=== PATIENT | female | born 1975 | race Caucasian/White ===

== ENCOUNTER → 2016-04-13 | Outpatient (CLI) | payer OTHER ==
[~2016-04-13] VITALS: Ht 170.2 cm; Wt 115.7 kg
[~2016-04-13] MED LIST: ATIVAN0.5 MG PO; BENADRYL ALLERG25 MG PO; BIOTIN5 M1 PO; CELEXA10 MG; CELEXA20 MG PO; COLACE100 MG PO; DEXILANT60 MG PO; FLEXERIL PO; HYDROCODONE-APA1 TA1 PO; IBUPROFEN 200200 M1 PO; LORTAB ELIXIR; NABUMETONE 750750 M1 PO; NEURONTIN 300300 M1 PO; NORCO 5-325 TA1 EACH PO; PAXIL40 MG PO; PERCOCET 7.5-31 EACH PO; PERCOCET PO; PREDNISONE 10 M10 MG PO; SENNA S TABLET1 EACH; THERA-M CAPLET1 EACH PO; TRAMADOL 50 MG50 MG PO; VOLTAREN GEL 1100 G2 TOP; ZOFRAN ODT4 MG; ZOFRAN ODT4 MG PO
--- NOTE | ~2016-04-13 | HPC ---
[facility] [place] [address] PAIN MANAGEMENT CONSULTATION Name: JESSICA ALEXANDRAULA Kayla Room #: REG [facility] [id number] Admission: 04/13/16 Attend Phys: Kanu Guerrero DO Discharge: Date of : 73 Report #: [id number] THIS REPORT FOR: //name// CC: Cirilo Guerrero HISTORY: The patient is a pleasant 41-year-old female, last seen in the pain clinic this past summer. She has had cervical radicular symptoms and has had 2 injections, March and April 2015, with 80% improvement of baseline pain. Pain had recurred 08/25 and I repeated an injection. On her 09/16 followup, she was actually doing reasonably well. Noted pain was fairly nominal. Noted, however, the injection only gave her about 50% relief. Concerned that perhaps symptoms were getting worse, I ordered an EMG. This was obtained 09/20/2015 and I reviewed it with the patient today. This was accomplished by Dr. Gonzalez and interestingly, shows essentially a normal study. No evidence of significant cervical radiculopathy. MRI from 10/13/2015 does however note C5-C6 to have focal protrusion a little left to midline at C5-C6 with canal narrowed to about 8 mm. The patient returns to the pain clinic today noting that cervical symptoms have recurred. Pain is right greater than left that is present on both sides, radiating into the first 3 fingers in both hands (thumb, index and long). PHYSICAL EXAMINATION: GENERAL: Shows 41-year-old female. Modestly elevated BMI at 39.9 kilograms per meter squared. VITAL SIGNS: Stable as noted in the EMR. MUSCULOSKELETAL: Cervical range of motion, flexion and extension exacerbates neck pain, with a nominally positive Lhermitte sign. Right arm has objective loss of strength to biceps, triceps, and hand grasp about 3-4/5; left is a little stronger at 4-5/5 to all muscle groups tested. The right biceps reflex is absent. It is 1/4 in the left brachioradialis and triceps reflexes are generally symmetric. ASSESSMENT: Symptomatic cervical radiculopathy by clinical exam and correlated with MRI. RECOMMENDATION: Repeat cervical epidural injection under fluoroscopy today. I have taken the liberty of renewing Percocet 5/325, 60 tablets with no refill, one tablet every 4-6 hours as needed for pain. The patient encouraged to use this on a non-daily basis. She is using ibuprofen p.r.n. NABUMETONE had caused a little gastritis. ASSESSMENT: Symptomatic cervical radiculopathy. RECOMMENDATIONS: Cervical epidural injection under fluoroscopy. [address] [address] PAIN MANAGEMENT CONSULTATION Name: DAGOBERTO ALEXANDRA Room #: REG ALLI Gan#: [id number] Admission: 04/13/16 Attend Phys: Kanu Guerrero DO Discharge: Date of : 73 Report #: [id number] PROCEDURE: Cervical epidural steroid injection under fluoroscopy. PROCEDURE NOTE: After written and informed consent was obtained including risk of dural puncture, spinal cord trauma, paralysis and increased pain, the patient was taken to the fluoroscopy suite and placed in the prone position, with appropriate abdominal bolstering, neck was flexed, palms under the thighs. Skin was prepped with ChloraPrep. Sterile draping was applied. Skin wheal with 1% Xylocaine was raised. A 22-gauge 3-1/2 inch epidural Tuohy needle was placed via a midline approach at the level of C7-T1 interspace, advanced under biplanar fluoroscopy using continuous loss of resistance. With appropriate loss of resistance at the expected depth on lateral view, the glass loss of resistance syringe was disconnected. A low volume extension tubing was connected to the needle and a 5 mL syringe. Negative aspiration for cerebrospinal fluid or blood was noted. A 1 mL of Omnipaque was injected which showed spread within the epidural space on biplanar fluoroscopy. This was followed with 80 mg of triamcinolone plus 1 mL of 1.5% preservative Xylocaine. Needle was withdrawn to the interspinous ligament, 0.5 mL of Xylocaine was used to flush the needle. The needle was then completely withdrawn. The area was cleansed. Band-Aid was applied. The patient was allowed to move off the procedure table and ambulated to the recovery room, monitored for an appropriate period of time, discharged in good and stable condition. <ELECTRONICALLY SIGNED> By: Kanu Guerrero DO 04/14/16 0904 [id number] Kanu Guerrero DO /nt
[2016-04-13 13:10] VITALS: BP 129/86
== END | disposition home or self-care (01) ==
LOC: PAIN 07:19
DX: M54.12 Radiculopathy, cervical region (principal)

== ENCOUNTER → 2016-07-12 | Outpatient (CLI) | payer OTHER | LOC: ULTRA 14:21 | DX: M79.605 Pain in left leg (principal); M79.89 Other specified soft tissue disorders ==

== ENCOUNTER → 2017-04-09 | Outpatient (CLI) | payer BC ==
[~2017-04-09] MED LIST changes: +LEXAPRO20 MG PO; +PAXIL10 MG PO; +TRAZODONE HCL50 MG PO
== END ==
LOC: RAD 09:17
DX: Z12.31 Encounter for screening mammogram for malignant neoplasm of breast (principal)

== ENCOUNTER → 2017-04-27 | Outpatient (CLI) | payer BC ==
[~2017-04-27] VITALS: Ht 170.2 cm; Wt 128.9 kg
--- NOTE | ~2017-04-27 | HPC ---
[facility] [place] [address] [place] [address] PAIN MANAGEMENT CONSULTATION Name: IBRAHIMADAGOBERTO ADRIANA Room #: REG ALLI Malik#: [id number] Admission: 04/27/17 Attend Phys: Kanu Guerrero DO Discharge: Date of : 73 Report #: [id number] THIS REPORT FOR: //name// CC: Cirilo Guerrero DATE OF SERVICE: 04/28/2017 The patient is a pleasant 42-year-old female, prior seen in the Pain Clinic back in January, given a cervical epidural injection at that time. The patient returns to Pain Clinic today noting that the injection afforded good relief, specifically the patient reports 85% relief for 2 months. She was able to do activities with less pain. She reports the pain has begun to recur without antecedent trauma and overuse. Pain is in the neck, right shoulder, and arm. PHYSICAL EXAMINATION: Shows subjective tingling in the arm. Cervical range of motion is limited with positive Lhermitte's, decreased right triceps and deltoid strength. DIAGNOSTIC STUDIES: We reviewed her MRI from 05/03/2016. There is multifocal spondylosis. Canals narrowed to about 9 mm at C6-C7. There is a left-sided HNP at C5-C6. Again, symptoms are more right-sided. ASSESSMENT: Symptomatic cervical radiculopathy by clinical exam and history. RECOMMENDATIONS: Cervical epidural injection under fluoroscopy today. I have taken the liberty of renewing Percocet 7.5/325, limit 50 tablets. If symptoms continue, patient will follow up in 1 month and refer to Neurosurgery. If she is doing well, will simply have her call up and cancel. ASSESSMENT: Symptomatic cervical radiculopathy. PROCEDURE: Cervical epidural injection under fluoroscopy. PROCEDURE NOTE: After written and informed consent was obtained including risk of dural puncture, spinal cord trauma, paralysis and increased pain, the patient was taken to the fluoroscopy suite and placed in the prone position, with appropriate abdominal bolstering, neck was flexed, palms under the thighs. Skin was prepped with ChloraPrep. Sterile draping was applied. Skin wheal with 1% Xylocaine was raised. A 22-gauge 3-1/2 inch epidural Tuohy needle was placed via a midline approach at the C7-T1 interspace, advanced under biplanar fluoroscopy using continuous loss of resistance. With appropriate loss of resistance at the expected depth on lateral view, the glass loss of resistance syringe was disconnected. A low volume extension tubing was connected to the needle and a 5 mL syringe. Negative aspiration for cerebrospinal fluid or blood was noted. A 1 mL of Omnipaque was injected which showed spread within the [facility] [address] [place] [address] PAIN MANAGEMENT CONSULTATION Name: DAGOBERTO ALEXANDRA Room #: REG ALLI Gan#: [id number] Admission: 04/27/17 Attend Phys: Kanu Guerrero DO Discharge: Date of : 73 Report #: [id number] epidural space on biplanar fluoroscopy. This was followed with 80 mg of triamcinolone plus 1 mL of 1.5% preservative Xylocaine. Needle was withdrawn to the interspinous ligament, 0.5 mL of Xylocaine was used to flush the needle. The needle was then completely withdrawn. The area was cleansed. Band-Aid was applied. The patient was allowed to move off the procedure table and ambulated to the recovery room, monitored for an appropriate period of time, discharged in good and stable condition. <ELECTRONICALLY SIGNED> By: Kanu Guerrero DO 04/30/17 0715 1222 05 Kanu Guerrero DO /nt
[2017-04-27 13:32] VITALS: BP 157/96
== END | disposition home or self-care (01) ==
LOC: PAIN 03-05 14:51
DX: M54.12 Radiculopathy, cervical region (principal); Z79.899 Other long term (current) drug therapy; M47.892 Other spondylosis, cervical region

== ENCOUNTER → 2017-05-18 | Outpatient (CLI) | payer BC ==
[~2017-05-18] VITALS: Ht 170.2 cm; Wt 129.7 kg
--- NOTE | ~2017-05-18 | HPC ---
[facility] [place] [address] [place] [address] PAIN MANAGEMENT CONSULTATION Name: JESSICA ALEXANDRAULA ADRIANA Room #: REG CHIPSylvie Gan#: [id number] Admission: 05/18/17 Attend Phys: Kanu Guerrero DO Discharge: Date of : 73 Report #: [id number] THIS REPORT FOR: //name// CC: Cirilo Guerrero DATE OF SERVICE: 05/18/2017 The patient is a very pleasant 42-year-old female being treated for symptomatic cervical radiculopathy. She has had good relief with epidural injections in the past. The last injection 04/27/2017 afforded only incremental relief. Symptoms have recurred. She has ongoing cervical radicular symptoms with pain primarily in the neck, right shoulder and arm. Does have some new radiation in the left arm. We reviewed her MRI from 05/03/2016 which did note mild multifocal spondylosis without high grade lateralizing stenosis, but ongoing cervical radicular symptoms. PHYSICAL EXAMINATION: Does show positive Lhermitte's with symptoms radiating to the right shoulder and arm. ASSESSMENT: Symptomatic cervical radiculopathy by clinical exam and history. RECOMMENDATION: 1. Cervical epidural injection under fluoroscopy today, this will be #3. 2. Renewed a short course of Percocet 7.5/325, limit 50 tablets, directions 1 tablet q.4-6h. 3. We will get a newer MRI of the cervical spine and refer the patient to Neurosurgery. Reason for the new MRI is that the last MRI is by definition greater than 1 year old and Neurosurgery will require a newer MRI. She does have ongoing cervical radicular symptoms. ASSESSMENT: Symptomatic cervical radiculopathy by clinical exam and history. PROCEDURE: Cervical epidural injection under fluoroscopy. PROCEDURE NOTE: After written and informed consent was obtained including risk of dural puncture, spinal cord trauma, paralysis and increased pain, the patient was taken to the fluoroscopy suite and placed in the prone position, with appropriate abdominal bolstering, neck was flexed, palms under the thighs. Skin was prepped with ChloraPrep. Sterile draping was applied. Skin wheal with 1% Xylocaine was raised. A 22-gauge 3-1/2 inch epidural Tuohy needle was placed via a midline approach at the C7-T1 interspace, advanced under biplanar fluoroscopy using continuous loss of resistance. With appropriate loss of resistance at the expected depth on lateral view, the glass loss of resistance [address] [address] PAIN MANAGEMENT CONSULTATION Name: DAGOBERTO ALEXANDRA ADRIANA Room #: REG Sylvie Gan#: [id number] Admission: 05/18/17 Attend Phys: Kanu Guerrero DO Discharge: Date of : 73 Report #: [id number] syringe was disconnected. A low volume extension tubing was connected to the needle and a 5 mL syringe. Negative aspiration for cerebrospinal fluid or blood was noted. A 1 mL of Omnipaque was injected which showed spread within the epidural space on biplanar fluoroscopy. This was followed with 80 mg of triamcinolone plus 1 mL of 1.5% preservative Xylocaine. Needle was withdrawn to the interspinous ligament, 0.5 mL of Xylocaine was used to flush the needle. The needle was then completely withdrawn. The area was cleansed. Band-Aid was applied. The patient was allowed to move off the procedure table and ambulated to the recovery room, monitored for an appropriate period of time, discharged in good and stable condition. <ELECTRONICALLY SIGNED> By: Kanu Guerrero DO 05/21/17 0747 1557 1758 Kanu Guerrero DO /nt
[2017-05-18 14:13] VITALS: BP 133/85
== END ==
LOC: PAIN 07:07
DX: M54.12 Radiculopathy, cervical region (principal)

== ENCOUNTER → 2018-05-03 | Outpatient (CLI) | payer BC | LOC: RAD 04-30 01:29 | DX: Z12.31 Encounter for screening mammogram for malignant neoplasm of breast (principal) ==

== ENCOUNTER → 2018-08-28 | Outpatient (CLI) | payer BC ==
[~2018-08-28] VITALS: Ht 170.2 cm; Wt 90.9 kg
[~2018-08-28] MED LIST changes: +BUSPIRONE HCL15 MG PO; +NORCO 7.5-3251 EACH PO
--- NOTE | ~2018-08-28 | HPC ---
[facility] [address] [place] [address] [place] [address] PAIN MANAGEMENT CONSULTATION Name: DAGOBERTO ALEXANDRA Room #: REG ALLI FrancoChago#: [id number] Admission: 08/28/18 ������������������ Attend Phys: Cirilo Guerrero DO Discharge: ������������������ Date of : 73 Report #: [id number] THIS REPORT FOR: //name// CC: Cirilo Spicer DATE OF SERVICE: 08/28/2018 REFERRING PHYSICIAN: Cirilo Isaac D.O. CHIEF COMPLAINT: Low back pain and left lower extremity pain with paresthesias. HISTORY OF PRESENT ILLNESS: As you know, the patient is a 43-year-old female who has returned today in followup visit with low back pain, left buttock and posterolateral thigh pain radiating all the way to the toes. She indicates her pain is chronic, burning, shooting, aching, gnawing, sharp, tender, numbness and tingling when describing pain. She places current pain score 6-7/10. She states pain is exacerbated with sitting, driving and lying down; improves with medications, heat and cold compresses and use of a recliner. She has been referred back to our clinic by her primary care physician, Dr. Cirilo Isaac to undergo a potential lumbar epidural injection under fluoroscopic guidance to address lumbar radicular symptoms. She indicates no injury or trauma that may have led to symptom development. She indicates that her pain has progressively worsened since her initial presentation. She has returned requesting a lumbar epidural injection to address new-onset lumbar radiculopathy. ALLERGIES: NONSTEROIDAL ANTI-INFLAMMATORIES, HYDROCODONE and ADHESIVE TAPE. CURRENT MEDICATIONS: Buspirone 15 mg b.i.d., hydrocodone/acetaminophen 7.5/325 one tab p.o. q. 8 hours p.r.n. pain, cyclobenzaprine 10 mg p.o. at bedtime and lorazepam 0.5 mg p.r.n. anxiety. SOCIAL HISTORY: The patient denies tobacco, alcohol or IV or illicit drug use. She is working, not receiving workmen's compensation, unaccompanied today. IMAGING DATA: MRI lumbar spine obtained 08/14/2018 shows L1-L2 unremarkable, L2-L3 unremarkable. L3-L4 shows mild disk bulge, mild facet arthropathy. No central canal neural foraminal stenosis. L4-L5, mild degenerative disk disease, mild facet arthropathy, mild broad-based disk bulge, no central canal neural foraminal stenosis. L5-S1, mild facet arthropathy on the left, mild broad-based disk bulge with annular tear at the 6 o'clock position. No spinal stenosis, moderate narrowing of the left lateral recess without nerve root compression, no neural foraminal narrowing. PHYSICAL EXAMINATION: [facility] [address] [place] [address] PAIN MANAGEMENT CONSULTATION Name: IBRAHIMADAGOBERTO WRIGHT [facility] #: [facility] [id number] Admission: 08/28/18 ������������������ Attend Phys: Cirilo Guerrero DO Discharge: ������������������ Date of : 73 Report #: [id number] VITAL SIGNS: Blood pressure 110/81, pulse 73, respiratory rate 16 and unlabored. The patient is 98% on room air. Height 5 feet 7 inches tall, weight 200.4 pounds and BMI calculated 31.4. GENERAL: Well-developed, well-nourished and well-hydrated 43-year-old female appearing stated age, placing current pain score 6-7/10. HEENT: Normocephalic and atraumatic. Pupils equal, round and reactive to light. Extraocular muscles are intact. Sclerae nonicteric without injection. NEUROLOGICAL: Cranial nerves 2 through 12 grossly intact. Speech is fluent. LUNGS: Clear. No wheeze, rhonchi or rales. CARDIOVASCULAR: Regular. No appreciable gallop. No rub. ABDOMEN: Soft and nontender. Mildly obese. Normoactive bowel sounds. EXTREMITIES: Show no clubbing, no cyanosis and no edema. MUSCULOSKELETAL: Lower extremity strength appears equal and symmetrical 5/5. Slight giveaway strength noted on the left when compared to the right. This is due to pain generation. There are no muscle bulk and tone changes when comparing left lower extremity to right. Seated straight leg raising negative. Supine straight leg raising positive on the left. Billie's test negative. Modified Gaenslen's positive for axial low back pain. Gait appears mildly antalgic favoring left lower extremity over right. ASSESSMENT: 1. Symptomatic lumbar radiculopathy. 2. Displacement of lumbar intervertebral disk with radiculopathy. 3. Lumbosacral spondylosis with radiculopathy. 4. Lumbar degeneration. PLAN: 1. Based on today's physical exam and history the patient has provided, the description the patient uses in regards to pain, the location of symptoms, the provocating factors that lead to pain as well as the findings of her MRI, the likely source of the patient's pain is lumbar radiculopathy. The patient and I discussed treatment options for lumbar radicular symptoms today. The following was discussed with the patient. We discussed physical therapy, stretching exercises and core strengthening techniques. We discussed medication management adding a neuropathic pain medication to her consistent and current medications. We discussed lumbar epidural injection for which the patient was referred to our clinic. We also discussed spinal cord stimulator therapy and surgical options. After reviewing risks and benefits of all proposed treatment options, the patient chose to undergo lumbar epidural injection under fluoroscopic guidance. The patient was advised risks and benefits of a lumbar epidural injection. These risks include but are not necessarily limited to bleeding, bruising, infection, worsening pain, no relief of pain, also risk of temporary or permanent muscle weakness, temporary or permanent nerve damage, possible [facility] [address] [place] [address] PAIN MANAGEMENT CONSULTATION Name: IBRAHIMADAGOBERTO Room #: REG [facility].#: [id number] Admission: 08/28/18 ������������������ Attend Phys: Cirilo Guerrero DO Discharge: ������������������ Date of : 73 Report #: [id number] paralysis, post-dural puncture headache and . The patient states understood and wished to proceed. 2. No medication changes made at today's visit. The patient will continue current medical therapy as previously prescribed. 3. We will see the patient back in followup visit on an as needed basis for possible next in the series of lumbar epidural injections. PROCEDURE NOTE DESCRIPTION OF PROCEDURE: L5-S1 left paramedian epidural steroid injection under fluoroscopic guidance. This is the first procedure of the first series that the patient is undergoing. After obtaining written consent, the patient was taken back to the fluoroscopy suite, placed in a prone position with pillow under the abdomen to decrease lumbar lordosis. The skin overlying the lumbosacral area was then prepped and draped in aseptic fashion. The L5-S1 vertebral interspace was then identified by AP fluoroscopy. The skin and subcutaneous tissue overlying the target site of injection was anesthetized with 3 mL 1% lidocaine. A 20-gauge 3-1/2 inch Tuohy needle was then advanced under fluoroscopic guidance towards the epidural space using a left paramedian approach. The epidural space was identified using loss of resistance to air technique. After negative aspiration for heme or cerebrospinal fluid, a total of 1 mL of Omnipaque was injected. A lumbar epidurogram was confirmed using both AP and lateral fluoroscopy. After negative aspiration for heme or cerebrospinal fluid, 5 mL of a solution containing 2 mL 40 mg per mL, 80 mg total triamcinolone, 3 mL of lidocaine 1% was injected in increments. Contrast spread was noted posterior epidural space. The needle was then retracted approximately half way and needle tract flushed with 1 mL of 1% lidocaine. Needle was then removed. There were no apparent sensory or motor deficits in the lower extremity following the procedure. A sterile bandage was placed over the injection site. The heart rate, pulse, oximetry and blood pressure were continuously monitored after the procedure. There were no apparent complications. The patient tolerated the procedure well and was carefully escorted to the recovery room in stable condition. There were no apparent complications. After meeting discharge criteria, the patient was then discharged home. ��������������������������������������������� ���������������������������������������� By: ��������������������������������������������� [id number] Cirilo Guerrero DO /nt
[2018-08-28 10:26] VITALS: BP 110/81
--- NOTE | 2018-08-28 10:45 | NUR ---
Pain Clinic Assessment: 1. History of Osteoarthritis: Not Applicable History of Rheumatoid Arthritis: Not Applicable 2. Height: 5 ft. 7 in. 170.2 cm. Weight: 200.4 lb. oz. 90.901 kg. Patient's BMI: 31.4 3. Vital Signs: BP: 110/81 Pulse: 73 Resp: 16 Temp: 02 Sat: 98 ECG Mon: 4. Pain Intensity: 6-7 5. Fall Risk: Dizziness: N Needs help standing or walking: N Fallen in the last 3 months: N Fall risk comments: 6. Patient on Blood Thinner: None 7. History of Hypertension: N 8. Opioid Therapy greater than 6 weeks: N Opiate Contract Signed: 9. Risk Assessment Tool Provided: LOW RISK 0/3 10. Functional Assessment Tool: 37/70 11. Recreational Drug Use: Never Drug Type: Tobacco Use: Former Smoker Tobacco Type: Amount or Packs/day: How Many Years: Alcohol Use: No Frequency: Quant:
== END | disposition home or self-care (01) ==
LOC: PAIN 06:54
DX: M51.16 Intervertebral disc disorders with radiculopathy, lumbar region (principal); M47.27 Other spondylosis with radiculopathy, lumbosacral region; G89.29 Other chronic pain; F41.9 Anxiety disorder, unspecified; Z87.891 Personal history of nicotine dependence; Z88.8 Allergy status to other drugs, medicaments and biological substances; Z98.890 Other specified postprocedural states

== ENCOUNTER → 2018-10-08 | Outpatient (CLI) | payer BC ==
[~2018-10-08] VITALS: Ht 170.2 cm; Wt 85.8 kg
[~2018-10-08] MED LIST changes: +NORCO 5-325 TA1 EAC1 PO; -NORCO 7.5-3251 EACH PO
--- NOTE | ~2018-10-08 | HPC ---
[address] [address] PAIN MANAGEMENT CONSULTATION Name: DAGOBERTO ALEXANDRA Room #: [facility]#: [id number] Admission: 10/08/18 ������������������ Attend Phys: Cirilo Guerrero DO Discharge: ������������������ Date of : 73 Report #: [id number] THIS REPORT FOR: //name// CC: Cirilo Spicer DATE OF SERVICE: 10/08/2018 REFERRING PHYSICIAN: Cirilo Isaac DO CHIEF COMPLAINT: Low back pain, left lower extremity pain and paresthesias. HISTORY OF PRESENT ILLNESS: As you know, the patient is a 43-year-old female referred to our service by Dr. Isaac to undergo lumbar epidural injections under fluoroscopic guidance to address lumbar radicular symptoms. The patient underwent a lumbar epidural injection at our last visit of 08/28/2018, that injection provided 80% improvement in overall pain lasting until just recently where she had a slow and progressive return of symptoms. She is now placing pain score 6/10. She describes the pain as burning, shooting, aching, numbness and tenderness. She describes the pain as chronic with a recent flareup on 09/26/2018, where she was participating in activities that exacerbated the symptoms. She continues to see increasing pain since that point. She returns in followup visit for requested lumbar epidural injection. ALLERGIES: NONSTEROIDAL ANTI-INFLAMMATORIES AND ADHESIVE TAPE. CURRENT MEDICATIONS: Provided via the primary care physician, buspirone 15 mg b.i.d., hydrocodone 7.5/325 one tab p.o. q. 8 hours p.r.n. for pain, cyclobenzaprine 10 mg p.o. at bedtime, diazepam 0.5 mg p.r.n. IMAGING: There is no new imaging available. PHYSICAL EXAMINATION: VITAL SIGNS: Blood pressure 122/87, pulse 70, respiratory rate 16 and unlabored. The patient is 100% on room air. Height 5 feet 7 inches tall, weight 189.2 pounds, BMI calculated 29.6. GENERAL: Well-developed, well-nourished, well-hydrated 43-year-old female. She appears her stated age. She is placing current pain score at 6/10. HEENT: Normocephalic, atraumatic. Pupils equal, round, reactive to light. Extraocular muscles are intact. Sclerae nonicteric without injection. NEUROLOGIC: Cranial nerves 2-12 grossly intact. Speech is fluent. The patient deemed a good historian. EXTREMITIES: Show no clubbing, no cyanosis, no edema. MUSCULOSKELETAL: Lower extremity strength is symmetrical 5/5. Slight giveaway strength noted with hip flexion, knee extension on the left when compared to the [facility] [address] [place] [address] PAIN MANAGEMENT CONSULTATION Name: DAGOBERTO ALEXANDRA Room #: [facility].#: [id number] Admission: 10/08/18 ������������������ Attend Phys: Cirilo Guerrero DO Discharge: ������������������ Date of : 73 Report #: [id number] right. Seated straight leg raising positive on the left. Supine straight leg raising positive on the left. Billie's test negative. Modified Gaenslen's positive for axial low back pain. Ankle clonus negative. Babinski is negative. Gait antalgic favoring left lower extremity over right. She is intact to light touch from L1 through S2 dermatomes. Muscle tone appears symmetrical when comparing left lower extremity over right. ASSESSMENT: 1. Symptomatic lumbar radiculopathy. 2. Displacement of lumbar intervertebral disk with radiculopathy. 3. Lumbosacral spondylosis with radiculopathy. 4. Lumbar degeneration. 5. Chronic intractable pain. PLAN: 1. The patient has returned today in followup visit to undergo the next in the series of lumbar epidural injections under fluoroscopic guidance. The patient reports near 80% improvement in overall pain with previous epidural injection. Unfortunately, her symptoms reoccurred on 09/26 while doing activities that led to recurrence of pain. She denies any specific injury or trauma while doing these activities, but states that she was overly active on that time. She believes this is the source of her recurrent symptoms. She returns today to undergo next in the series of epidural injections for which the patient was referred to our clinic. She has been advised the risks and benefits of the procedure, states she understood and wished to proceed. 2. The patient has requested opioid medication management with our services. I advised the patient at this time we are not taking on any opioid medication management patients, especially patients that are only going to be on the medication for a short period of time. The patient was started on hydrocodone by her primary care physician and can continue with this therapy as we have indicated to the patient before opioid medications are not effective treatment option for lumbar radiculopathy, it is not recommended for treatment for lumbar radiculopathy. These medications were started by the primary care physician and if they wish to continue these medications, they could certainly do so. Otherwise, they can give her weaning parameters to come off the medication safely without withdrawal effects. The patient will need to contact Dr. Isaac in regards to these medications he initiated. 3. We did discuss with the patient the possibility of starting on neuropathic pain medication and appropriate therapy for neuropathic symptoms. At this point, she wishes to delay starting any new medications in favor of determining if the epidural injection will provide benefit. We are in agreement with the patient at this point if she wishes to trial conservative options with the epidural to determine if her symptoms improve. If they do not, neuropathic pain medications may be necessary. These are medications such as amitriptyline, nortriptyline, Cymbalta, Lyrica or Neurontin. These are indicated and appropriate for neuropathic pain. [address] [address] PAIN MANAGEMENT CONSULTATION Name: IBRAHIMADAGOBERTO Room #: [facility].#: [id number] Admission: 10/08/18 ������������������ Attend Phys: Cirilo Guerrero DO Discharge: ������������������ Date of : 73 Report #: [id number] 4. The patient will contact our clinic next week. If she is not seeing improvement in symptoms, we would recommend she undergo MRI of the lumbar spine for further evaluation given this acute reoccurrence of symptoms on 09/26/2018 while highly active. If further imaging is necessary, the patient will contact our clinic in regards to this option. PROCEDURE NOTE DESCRIPTION OF PROCEDURE: L5-S1 left paramedian epidural steroid injection under fluoroscopic guidance. After obtaining written consent, the patient was taken back to fluoroscopy suite, placed in prone position with pillow under abdomen to decrease lumbar lordosis. Skin overlying lumbosacral area then prepped and draped in aseptic fashion. The lumbar intervertebral spaces were identified by AP fluoroscopy. Skin and subcutaneous tissue overlying target site of injection anesthetized with 3 mL of 1% lidocaine. A 20-gauge 3-1/2 inch Tuohy needle was advanced under fluoroscopic guidance towards the epidural space using left paramedian approach. Epidural space identified using loss of resistance to air technique. After negative aspiration for heme or cerebrospinal fluid, 1 mL of Omnipaque injected. Lumbar epidurogram confirmed using both AP and lateral fluoroscopy. After negative aspiration for heme or cerebrospinal fluid, 5 mL of solution containing 2 mL 40 mg per mL, 80 mg total triamcinolone, 3 mL of lidocaine 1% injected slowly. Needle retracted detention, flushed with 1 mL of 1% lidocaine and then removed. Sterile bandage placed over injection site. No new motor deficits present in the lower extremity following procedure. The patient tolerated the procedure well, carefully escorted to recovery room in stable condition. No apparent complications. After meeting discharge criteria, the patient discharged home. ��������������������������������������������� ���������������������������������������� By: ��������������������������������������������� [id number] Cirilo Guerrero DO /nt
[2018-10-08 13:55] VITALS: BP 122/87
--- NOTE | 2018-10-08 14:06 | NUR ---
Pain Clinic Assessment: 1. History of Osteoarthritis: Not Applicable History of Rheumatoid Arthritis: Not Applicable 2. Height: 5 ft. 7 in. 170.2 cm. Weight: 189.2 lb. oz. 85.821 kg. Patient's BMI: 29.6 3. Vital Signs: BP: 122/87 Pulse: 70 Resp: 16 Temp: 02 Sat: 100 ECG Mon: 4. Pain Intensity: 6 5. Fall Risk: Dizziness: N Needs help standing or walking: N Fallen in the last 3 months: N Fall risk comments: 6. Patient on Blood Thinner: None 7. History of Hypertension: N 8. Opioid Therapy greater than 6 weeks: N Opiate Contract Signed: 9. Risk Assessment Tool Provided: LOW RISK 0/3 10. Functional Assessment Tool: 11. Recreational Drug Use: Never Drug Type: Tobacco Use: Former Smoker Tobacco Type: Amount or Packs/day: How Many Years: Alcohol Use: No Frequency: Quant:
== END | disposition home or self-care (01) ==
LOC: PAIN 13:39
DX: M51.16 Intervertebral disc disorders with radiculopathy, lumbar region (principal); M47.27 Other spondylosis with radiculopathy, lumbosacral region; G89.29 Other chronic pain; Z88.8 Allergy status to other drugs, medicaments and biological substances; Z79.891 Long term (current) use of opiate analgesic; Z79.899 Other long term (current) drug therapy; Z98.890 Other specified postprocedural states

== ENCOUNTER → 2019-12-19 | Outpatient (CLI) | payer BC | LOC: LAB 08:06 | PROVIDERS: ATTEND Anesthesiology | DX: Z01.812 Encounter for preprocedural laboratory examination (principal); Z20.828 Contact with and (suspected) exposure to other viral communicable diseases ==

== ENCOUNTER → 2020-06-15 | Outpatient (CLI) | payer OTHER | LOC: LAB 07:19 | PROVIDERS: ATTEND Anesthesiology | DX: Z01.812 Encounter for preprocedural laboratory examination (principal); Z20.822 Contact with and (suspected) exposure to COVID-19 ==